=== PATIENT | female | born 1960 | race Two or more races ===

== ENCOUNTER 2022-12-16 17:31 | Inpatient (IN) | payer MEDICARE, OTHER ==
[~2022-12-16] VITALS: Ht 170.2 cm; Wt 140.6 kg
[2022-12-16 21:00] VITALS: BP 117/63; TEMP 98.1
[2022-12-16] MEDS ORDERED: BLOOD SUGAR DIAGNOSTIC 1 EACH STRIP IN ONE (21:30)
[2022-12-16] MEDS ORDERED: MAG HYDROX/AL HYDROX/SIMETH 30 ML UDC PO PRN (21:30)
[2022-12-16] MEDS ORDERED: MAGNESIUM HYDROXIDE 30 ML UDC PO PRN (21:30)
[2022-12-16] MEDS ORDERED: LORAZEPAM 0.5 MG TABLET PO PRN (21:30)
[2022-12-16] MEDS ORDERED: ZOLPIDEM TARTRATE 5 MG TABLET PO PRN (21:30)
[2022-12-16] MEDS ORDERED: ALBU90AE2 MT (23:11)
[2022-12-16] MEDS ORDERED: AMLO-212 MT (23:11)
[2022-12-16] MEDS ORDERED: NORE0.3513 MT (23:11)
[2022-12-16] MEDS ORDERED: GLIP5TAB13 MT (23:11)
[2022-12-16] MEDS ORDERED: INSU100V9 (23:11)
[2022-12-16] MEDS ORDERED: METF-440 MT (23:11)
[2022-12-16] MEDS ORDERED: OLAN20TA6 MT (23:11)
[2022-12-16] MEDS ORDERED: INSU100I26 SUBCUT (23:11)
[2022-12-16] MEDS ORDERED: ATOR10TA MT (23:11)
[2022-12-16] MEDS ORDERED: DIPH50CA4 PO (23:13)
[2022-12-16] MEDS ORDERED: DOCU-141 PO (23:13)
[2022-12-16] MEDS ORDERED: BLOOD SUGAR DIAGNOSTIC 1 EACH STRIP IN SCH (23:30)
[2022-12-16] MEDS ORDERED: INSULIN REGULAR, HUMAN 100 UNIT/ML 3 ML VIAL SQ PRN (23:30)
[2022-12-16] MEDS ORDERED: DEXTROSE 50%-WATER 50 ML DISP.SYRIN IV PRN (23:30)
[2022-12-16] MEDS ORDERED: ALBUTEROL SULFATE 8 GM HFA.AER.AD IH PRN (23:45)
[2022-12-16] MEDS ORDERED: INSULIN REGULAR, HUMAN 100 UNIT/ML 3 ML VIAL ONE (23:59)
[2022-12-17] MEDS ORDERED: DEXTROSE 50%-WATER 50 ML DISP.SYRIN IV PRN
[2022-12-17] MEDS: *INSULIN REGULAR(HUMULIN R)HUM 100 UNIT/ML VIAL SQ PRN ×2 (00:07→21:12)
[2022-12-17] MEDS ORDERED: ALBUTEROL FS 2.5 MG/3 ML VIAL.NEB NEB PRN (07:30)
[2022-12-17] MEDS: BLOOD SUGAR DIAGNOSTIC 1 EACH STRIP VI SCH ×4 (07:39→21:24)
[2022-12-17] MEDS: INSULIN REGULAR, HUMAN 100 UNIT/ML 3 ML VIAL SQ PRN ×3 (07:40→17:41)
[2022-12-17 08:00] VITALS: BP 132/72; TEMP 97.7; O2SAT 96
[2022-12-17] MEDS: METFORMIN 500 MG TABLET PO SCH (08:09)
[2022-12-17] MEDS: DOCUSATE SODIUM 100 MG CAPSULE PO SCH ×2 (08:09→17:00)
[2022-12-17 08:26] LABS: BILIRUBIN,TOTAL 0.3 mg/dL (0.2-1.0); CALCIUM, SERUM 8.6 mg/dL (8.5-10.1); CREATININE 0.6 mg/dL (0.6-1.3); POTASSIUM 4.8 mmol/L (3.5-5.1); TOTAL PROTEIN, SERUM 7.1 g/dL (6.4-8.2)
[2022-12-17] MEDS ORDERED: glipiZIDE 5 MG TABLET PO SCH (09:00)
[2022-12-17] MEDS: risperiDONE 1 MG TABLET PO SCH ×2 (12:12→17:31)
[2022-12-17] MEDS: ACETAMINOPHEN 325 MG TABLET PO PRN (14:14)
[2022-12-17 16:00] VITALS: BP 154/90; TEMP 98.6; O2SAT 96
[2022-12-17 20:37] VITALS: BP 125/66; TEMP 97.3; O2SAT 99
[2022-12-17] MEDS: diphenhydrAMINE HCL 50 MG CAPSULE PO SCH (21:06)
[2022-12-17] MEDS: ATORVASTATIN 10 MG TABLET PO SCH (21:07)
[2022-12-17] MEDS: AMLODIPINE BESYLATE 5 MG TABLET PO SCH (21:07)
[2022-12-17] MEDS: INSULIN GLARGINE, 100 UNIT/ML CARTRIDGE SQ SCH (21:15)
[2022-12-17] MEDS ORDERED: NORETHINDRONE PO SCH (22:00)
[2022-12-17] MEDS: LORAZEPAM 0.5 MG TABLET PO PRN (22:53)
[2022-12-18 00:39] VITALS: O2SAT 97
[2022-12-18 00:51] VITALS: O2SAT 98
[2022-12-18] MEDS: BLOOD SUGAR DIAGNOSTIC 1 EACH STRIP VI SCH ×4 (07:00→22:34)
[2022-12-18] MEDS: INSULIN REGULAR, HUMAN 100 UNIT/ML 3 ML VIAL SQ PRN ×3 (07:45→16:43)
[2022-12-18 08:00] VITALS: BP 122/80; TEMP 98; O2SAT 97
[2022-12-18] MEDS: DOCUSATE SODIUM 100 MG CAPSULE PO SCH ×2 (08:43→16:31)
[2022-12-18] MEDS: risperiDONE 1 MG TABLET PO SCH ×2 (08:43→16:31)
[2022-12-18] MEDS: METFORMIN 500 MG TABLET PO SCH (08:43)
[2022-12-18] MEDS: LORAZEPAM 0.5 MG TABLET PO PRN (08:50)
[2022-12-18] MEDS: ACETAMINOPHEN 325 MG TABLET PO PRN (14:17)
[2022-12-18 16:00] VITALS: BP 113/65; TEMP 98.4; O2SAT 96
[2022-12-18 20:00] VITALS: BP 124/83; TEMP 98.3; O2SAT 98
[2022-12-18] MEDS: diphenhydrAMINE HCL 50 MG CAPSULE PO SCH (22:08)
[2022-12-18] MEDS: AMLODIPINE BESYLATE 5 MG TABLET PO SCH (22:11)
[2022-12-18] MEDS: ATORVASTATIN 10 MG TABLET PO SCH (22:12)
[2022-12-18] MEDS: *INSULIN REGULAR(HUMULIN R)HUM 100 UNIT/ML VIAL SQ PRN (22:36)
[2022-12-18] MEDS: INSULIN GLARGINE, 100 UNIT/ML CARTRIDGE SQ SCH (22:39)
[2022-12-19] MEDS: LORAZEPAM 0.5 MG TABLET PO PRN ×3 (02:05→22:57)
[2022-12-19] MEDS: ACETAMINOPHEN 325 MG TABLET PO PRN ×3 (02:16→19:28)
[2022-12-19] MEDS: BLOOD SUGAR DIAGNOSTIC 1 EACH STRIP VI SCH ×4 (07:51→21:45)
[2022-12-19 08:00] VITALS: BP 132/89; TEMP 98; O2SAT 100
[2022-12-19] MEDS: DOCUSATE SODIUM 100 MG CAPSULE PO SCH ×2 (08:09→16:53)
[2022-12-19] MEDS: risperiDONE 1 MG TABLET PO SCH ×2 (08:09→16:54)
[2022-12-19] MEDS: METFORMIN 500 MG TABLET PO SCH ×2 (08:09→16:53)
[2022-12-19] MEDS: INSULIN REGULAR, HUMAN 100 UNIT/ML 3 ML VIAL SQ PRN ×3 (08:11→17:23)
[2022-12-19 16:00] VITALS: BP 115/63; TEMP 98; O2SAT 100
[2022-12-19 20:00] VITALS: BP 115/95; TEMP 98.6; O2SAT 99
[2022-12-19] MEDS: diphenhydrAMINE HCL 50 MG CAPSULE PO SCH (21:27)
[2022-12-19] MEDS: ATORVASTATIN 10 MG TABLET PO SCH (21:27)
[2022-12-19] MEDS: AMLODIPINE BESYLATE 5 MG TABLET PO SCH (21:28)
[2022-12-19] MEDS: *INSULIN REGULAR(HUMULIN R)HUM 100 UNIT/ML VIAL SQ PRN (21:42)
[2022-12-19] MEDS ORDERED: INSULIN GLARGINE, 100 UNIT/ML CARTRIDGE SQ SCH (22:00)
[2022-12-20] MEDS: ACETAMINOPHEN 325 MG TABLET PO PRN ×2 (04:34→16:17)
[2022-12-20] MEDS: BLOOD SUGAR DIAGNOSTIC 1 EACH STRIP VI SCH ×2 (07:58→11:08)
[2022-12-20 08:00] VITALS: BP 122/99; TEMP 97.8; O2SAT 98
[2022-12-20] MEDS: *INSULIN REGULAR(HUMULIN R)HUM 100 UNIT/ML VIAL SQ PRN ×3 (08:00→22:43)
[2022-12-20] MEDS: DOCUSATE SODIUM 100 MG CAPSULE PO SCH ×2 (08:15→16:17)
[2022-12-20] MEDS: risperiDONE 1 MG TABLET PO SCH ×2 (08:15→16:17)
[2022-12-20] MEDS: LORAZEPAM 0.5 MG TABLET PO PRN ×2 (08:15→16:17)
[2022-12-20] MEDS: METFORMIN 500 MG TABLET PO SCH ×2 (08:15→16:17)
[2022-12-20] MEDS ORDERED: DEXTROSE 50%-WATER 50 ML DISP.SYRIN IV PRN (12:00)
[2022-12-20] MEDS: BLOOD SUGAR DIAGNOSTIC 1 EACH STRIP IN SCH ×3 (12:08→22:38)
[2022-12-20 16:00] VITALS: BP 109/74; TEMP 97.8; O2SAT 98
[2022-12-20] MEDS: INSULIN REGULAR, HUMAN 100 UNIT/ML 3 ML VIAL SQ PRN (16:53)
[2022-12-20 20:52] VITALS: BP 111/63; TEMP 97.6; O2SAT 95
[2022-12-20] MEDS: diphenhydrAMINE HCL 50 MG CAPSULE PO SCH (22:27)
[2022-12-20] MEDS: AMLODIPINE BESYLATE 5 MG TABLET PO SCH (22:27)
[2022-12-20] MEDS: ATORVASTATIN 10 MG TABLET PO SCH (22:27)
[2022-12-20] MEDS: INSULIN GLARGINE, 100 UNIT/ML CARTRIDGE SQ SCH (22:45)
[2022-12-21] MEDS: LORAZEPAM 0.5 MG TABLET PO PRN (00:15)
[2022-12-21 08:00] VITALS: BP 130/71; TEMP 98.6; O2SAT 98
[2022-12-21] MEDS: BLOOD SUGAR DIAGNOSTIC 1 EACH STRIP IN SCH ×4 (08:06→21:15)
[2022-12-21] MEDS: DOCUSATE SODIUM 100 MG CAPSULE PO SCH ×2 (08:35→17:21)
[2022-12-21] MEDS: risperiDONE 1 MG TABLET PO SCH ×2 (08:35→17:21)
[2022-12-21] MEDS: METFORMIN 500 MG TABLET PO SCH ×2 (08:35→17:21)
[2022-12-21] MEDS: INSULIN REGULAR, HUMAN 100 UNIT/ML 3 ML VIAL SQ PRN (08:42)
[2022-12-21 16:00] VITALS: BP 144/84; TEMP 97.9; O2SAT 98
[2022-12-21] MEDS: *INSULIN REGULAR(HUMULIN R)HUM 100 UNIT/ML VIAL SQ PRN ×2 (17:23→21:40)
[2022-12-21] MEDS: diphenhydrAMINE HCL 50 MG CAPSULE PO SCH (21:05)
[2022-12-21 21:06] VITALS: BP 124/87; TEMP 97; O2SAT 97
[2022-12-21] MEDS: AMLODIPINE BESYLATE 5 MG TABLET PO SCH (21:06)
[2022-12-21] MEDS: ATORVASTATIN 10 MG TABLET PO SCH (21:06)
[2022-12-21] MEDS: INSULIN GLARGINE, 100 UNIT/ML CARTRIDGE SQ SCH (21:35)
[2022-12-21] MEDS: ACETAMINOPHEN 325 MG TABLET PO PRN (21:47)
[2022-12-22] MEDS: ACETAMINOPHEN 325 MG TABLET PO PRN (03:52)
[2022-12-22] MEDS: BLOOD SUGAR DIAGNOSTIC 1 EACH STRIP IN SCH (07:47)
[2022-12-22 08:00] VITALS: BP 109/49; TEMP 97; O2SAT 95
[2022-12-22] MEDS: METFORMIN 500 MG TABLET PO SCH (08:09)
[2022-12-22] MEDS: DOCUSATE SODIUM 100 MG CAPSULE PO SCH (08:09)
[2022-12-22] MEDS: risperiDONE 1 MG TABLET PO SCH (08:09)
[2022-12-22] MEDS: INSULIN REGULAR, HUMAN 100 UNIT/ML 3 ML VIAL SQ PRN (08:17)
== END 2022-12-22 11:15 | DRG 885 ==
LOC: GPS 20:35
PROVIDERS: ADMIT Psychiatry & Neurology Psychiatry; ATTEND Student in an Organized Health Care Education/Training Program
DX: F20.0 Paranoid schizophrenia (principal); E11.65 Type 2 diabetes mellitus with hyperglycemia; E44.1 Mild protein-calorie malnutrition; Z68.42 Body mass index [BMI] 45.0-49.9, adult; F29 Unspecified psychosis not due to a substance or known physiological condition; E78.5 Hyperlipidemia, unspecified; I10 Essential (primary) hypertension; E66.9 Obesity, unspecified; E88.09 Other disorders of plasma-protein metabolism, not elsewhere classified; Z20.822 Contact with and (suspected) exposure to COVID-19
CPT/HCPCS: 36415; 80053-TC; 80061-TC; 82962-TC; 84443-TC; 87081-TC; J1815; Q0163